=== PATIENT | female | born 1990 | race Hispanic/Latino ===

== ENCOUNTER 2021-11-24 05:58 | Day surgery (SDC) | payer OTHER ==
[2021-11-23 16:03] VITALS: BP 133/84
[2021-11-23 16:07] LABS: BASOPHILS % (AUTO) 0.4 % (0.0-5.0); HEMATOCRIT 39.6 % (36-48); LYMPHOCYTES % (AUTO) 27.2 % (21.0-51.0); MEAN CORPUSCULAR HEMOGLOBIN 29.4 pg (27.0-33.0); MEAN CORPUSCULAR HGB CONC 32.1 g/dL (32.0-36.0); MEAN CORPUSCULAR VOLUME 91.7 fL (79-99); MONOCYTES % (AUTO) 7.1 % (3.0-13.0); NEUTROPHILS % (AUTO) 63.8 % (40.0-77.0); PLATELET COUNT (AUTO) 316 K/uL (130-400); RED BLOOD CELL COUNT(AUTO) 4.32 MIL/uL (4.00-5.50); RED CELL DISTRIBUTION WIDTH 13.4 % (11.0-15.5); WHITE BLOOD COUNT (AUTO) 9.4 K/uL (4.8-10.8)
[2021-11-23 16:13] LABS: CREATININE 0.9 mg/dL (0.5-1.5); POTASSIUM 4.4 mmol/L (3.5-5.1)
[~2021-11-24] VITALS: Ht 162.6 cm; Wt 81.4 kg
[2021-11-24] VITALS (11 sets, daily range): BP systolic 107–119; BP diastolic 66–76
[2021-11-24] MEDS ORDERED: CEFAZOLIN SODIUM 1 GM VIAL ONE (06:37)
[2021-11-24] MEDS ORDERED: LIDOCAINE 1%-EPI 1:100,000 20 ML VIAL IJ ONE (06:41)
[2021-11-24] MEDS ORDERED: DEXAMETHASONE SOD PHOSPHATE 10MG/ML 1ML VIAL ONE (06:57)
[2021-11-24] MEDS ORDERED: LIDOCAINE PF 100MG/5ML (2%) SYRINGE 5ML ONE (06:57)
[2021-11-24] MEDS ORDERED: PROPOFOL 10 MG/ML 20ML VIAL IV ONE (06:57)
[2021-11-24] MEDS ORDERED: SUCCINYLCHOLINE 200MG/10ML SYR ONE (06:57)
[2021-11-24] MEDS ORDERED: MIDAZOLAM HCL 1 MG/ML 2ML VIAL ONE ×3 (06:57→08:28)
[2021-11-24] MEDS ORDERED: GLYCOPYRROLATE 1 MG/5 ML SYRINGE ONE (06:57)
[2021-11-24] MEDS ORDERED: NEOSTIGMINE 5MG/5ML SYR IV ONE (06:58)
[2021-11-24] MEDS ORDERED: ONDANSETRON 4MG INJ ONE (06:58)
[2021-11-24] MEDS ORDERED: FENTANYL CITRATE PF 50 MCG/1 ML 2ML VIAL ONE ×3 (06:58→08:29)
[2021-11-24] MEDS ORDERED: ROCURONIUM 10MG/1ML SYR 10 MG/ML ML ONE (06:58)
[2021-11-24] MEDS ORDERED: BACITRACIN 28.4 GM OINT TP ONE (08:04)
[2021-11-24] MEDS: LACTATED RINGERS 1000ML 1,000 ML IV ONE ×2 (08:28→08:45)
== END 2021-11-24 10:10 | disposition home or self-care (01) ==
LOC: DAH 05:58
PROVIDERS: ATTEND Otolaryngology Plastic Surgery within the Head & Neck
DX: L72.0 Epidermal cyst (principal); K13.0 Diseases of lips; Q18.1 Preauricular sinus and cyst; E66.01 Morbid (severe) obesity due to excess calories; Z68.30 Body mass index [BMI] 30.0-30.9, adult; Z83.3 Family history of diabetes mellitus; Z82.49 Family history of ischemic heart disease and other diseases of the circulatory system
CPT/HCPCS: 11442; 11443; 36415; 80048; 84703; 85025; 87635; A4215; A4221; A4222; A4223; A4606; A4663; A6260; C9803; J0330; J0690; J1100; J2001; J2250 ×3; J2405; J2704; J3010 ×3; J3490 ×2; J7120; J2710